=== PATIENT | female | born 1985 | race African-American/Black ===

== ENCOUNTER 2022-10-17 07:28 | Emergency (ER) | payer OTHER ==
[~2022-10-17] VITALS: Ht 152.4 cm; Wt 79.0 kg
[2022-10-17] MEDS ORDERED: METOCLOPRAMIDE HCL 10MG/2ML VIAL IV STA (07:42)
[2022-10-17] MEDS ORDERED: FAMOTIDINE 20MG/2ML VIAL IV STA (07:42)
[2022-10-17] MEDS ORDERED: SODIUM CHLORIDE 0.9% 1,000 ML IV ONE (07:45)
[2022-10-17 08:07] LABS: BASOPHILS % 0.3 % (0.0-2.0); HEMATOCRIT. 29.2 % (36.0-48.0); HEMOGLOBIN. 8.9 g/dL (12.0-16.0); LYMPHOCYTES % 17.5 % (20.0-50.0); MEAN CORPUSCULAR HEMOGLOBIN 20.6 pg (28.0-32.0); MEAN CORPUSCULAR VOLUME 67.4 fL (81.0-99.0); MEAN PLATELET VOLUME 7.5 fl (7.4-10.4); MONOCYTES % 5.2 % (2.0-8.0); PLATELET 439 x1000/uL (130-400); RED BLOOD CELL COUNT 4.33 mill/uL (4.2-5.4); RED CELL DISTRIBUTION WIDTH 18.3 % (11.6-14.6)
[2022-10-17 08:12] LABS: CHLORIDE 108 mEq/L (98-107)
[2022-10-17 08:16] LABS: HCG SCREEN NEGATIVE
[2022-10-17] MEDS: ACETAMINOPHEN 325MG TABLET PO STA ×2 (08:16→08:17)
[2022-10-17 08:18] LABS: INR 0.9; PROTHROMBIN TIME 10.2 sec (9.6-11.0)
[2022-10-17 08:20] LABS: ETHANOL BLOOD < 10 mg/dL
[2022-10-17 08:52] LABS: PLATELET ESTIMATE SLIGHTLY INCREASED
[2022-10-17 09:30] LABS: CLARITY URINE CLOUDY (CLEAR); COLOR URINE YELLOW (YELLOW); KETONES URINE 2+ (NEGATIVE); LEUKOCYTE ESTERASE URINE NEGATIVE (NEGATIVE); NITRITE URINE NEGATIVE (NEGATIVE); OCCULT BLOOD URINE NEGATIVE (NEGATIVE); PH URINE 7.5 (4.5-8.0); PROTEIN URINE NEGATIVE (NEGATIVE); SPECIFIC GRAVITY URINE 1.014 (1.005-1.030)
[2022-10-17 09:57] LABS: *AMPHETAMINES SCREEN URINE NEGATIVE (NEGATIVE); *BARBITURATES SCREEN URINE NEGATIVE (NEGATIVE); *BENZODIAZEPINES SCREEN URINE NEGATIVE (NEGATIVE); *COCAINE SCREEN URINE NEGATIVE (NEGATIVE); METHADONE URINE SCREEN NEGATIVE (NEGATIVE); OPIATES URINE SCREEN NEGATIVE (NEGATIVE); PHENCYCLIDINE URINE SCREEN NEGATIVE (NEGATIVE)
[2022-10-17 10:03] LABS: CANNABINOID URINE SCREEN PRESUMTIVE POSITIVE (NEGATIVE)
[2022-10-17 12:00] VITALS: BP 121/65
== END 2022-10-17 13:30 | disposition home or self-care (01) ==
LOC: ER 07:28
DX: R10.10 Upper abdominal pain, unspecified (principal); Z90.49 Acquired absence of other specified parts of digestive tract
CPT/HCPCS: 36415; 71045; 73110; 73130; 73610; 74176; 76830; 76856; 80053; 80305; 80320; 81003; 83690; 84703; 85025; 85610; 96374; 96375; 99285; C1893; J2765; J3490; J7030; Z7610; G0480

== ENCOUNTER 2023-04-04 14:50 | Emergency (ER) | payer OTHER ==
[~2023-04-04] VITALS: Ht 152.4 cm; Wt 74.0 kg
[2023-04-04 14:56] VITALS: BP 121/86; PULSE 89; RESP 16; TEMP 98.9; O2SAT 100
[2023-04-04 15:41] LABS: BASOPHILS % 0.4 % (0.0-2.0); EOSINOPHILS % 0.5 % (0.0-5.0); HEMATOCRIT. 39.1 % (36.0-48.0); HEMOGLOBIN. 12.7 g/dL (12.0-16.0); MEAN CORPUSCULAR HEMOGLOBIN 26.1 pg (28.0-32.0); MEAN CORPUSCULAR HGB CONC 32.5 g/dL (31.0-37.0); MEAN CORPUSCULAR VOLUME 80.1 fL (81.0-99.0); MEAN PLATELET VOLUME 8.3 fl (7.4-10.4); MONOCYTES % 4.3 % (2.0-8.0); NEUTROPHILS % 72.8 % (40.0-76.0); PLATELET 375 x1000/uL (130-400); RED BLOOD CELL COUNT 4.88 mill/uL (4.2-5.4); RED CELL DISTRIBUTION WIDTH 16.8 % (11.6-14.6); WHITE BLOOD COUNT 9.9 x1000/uL (4.5-11.0)
[2023-04-04 15:46] LABS: CLARITY URINE CLOUDY (CLEAR); COLOR URINE YELLOW (YELLOW); GLUCOSE URINE NEGATIVE (NEGATIVE); KETONES URINE NEGATIVE (NEGATIVE); LEUKOCYTE ESTERASE URINE NEGATIVE (NEGATIVE); NITRITE URINE NEGATIVE (NEGATIVE); OCCULT BLOOD URINE NEGATIVE (NEGATIVE); PROTEIN URINE TRACE (NEGATIVE); SPECIFIC GRAVITY URINE 1.025 (1.005-1.030)
[2023-04-04 15:47] LABS: SQUAMOUS EPITHELIAL CELL URINE 1+ /lpf (RARE/1+); YEAST URINE NONE SEEN
[2023-04-04] MEDS ORDERED: FAMOTIDINE 20MG/2ML VIAL IV NR (16:00)
[2023-04-04] MEDS ORDERED: ONDANSETRON HCL 4MG/2ML INJ IV NR (16:00)
[2023-04-04] MEDS ORDERED: DIATR MEGLU/DIATRIZOATE SOLN 30ML PO NR (16:00)
[2023-04-04 16:02] LABS: BACTERIA URINE 2+; MUCUS URINE 2+ /lpf (< = 2+); RBC URINE 0-2 /hpf (0-2); WBC URINE 0-2 /hpf (0-2)
[2023-04-04 16:09] LABS: CHLORIDE 107 mEq/L (98-107); INDEX HEMOLYSI 1 (1-3); INDEX ICTERIC 1 (1-4); INDEX LIPEMIC 1 (1-3); POTASSIUM 3.9 mEq/L (3.5-5.1); SODIUM 138 mEq/L (136-145)
[2023-04-04 16:17] LABS: ALANINE AMINOTRANSFERASE 15 IU/L (13-61); ALBUMIN 3.4 g/dL (3.4-5.0); ASPARTATE AMINOTRANSFERASE 12 IU/L (15-37); BILIRUBIN TOTAL 0.3 mg/dL (0.1-1.0); CALCIUM 8.9 mg/dL (8.5-10.1); CARBON DIOXIDE 26 mEq/L (21-32); CREATININE 0.7 mg/dL (0.6-1.3); GLUCOSE 92 mg/dL (70-105); PROTEIN TOTAL 7.7 g/dL (6.0-8.3); UREA NITROGEN BLOOD 7 mg/dL (7-21)
[2023-04-04] MEDS: SODIUM CHLORIDE 0.9% 1,000 ML IV SCH ×2 (18:00→18:02)
[2023-04-04] MEDS ORDERED: MORPHINE SULFATE 2 MG/ML CPJ (NOT FOR IM USE) IV ONE (19:00)
[2023-04-04] MEDS ORDERED: IOHEXOL-300 100 ML BOTTLE ONE (19:16)
[2023-04-04] MEDS ORDERED: ACET-2708 MT (21:48)
== END 2023-04-04 21:55 | disposition home or self-care (01) ==
LOC: ER 15:01
DX: R10.816 Epigastric abdominal tenderness (principal); Z90.49 Acquired absence of other specified parts of digestive tract; Z98.890 Other specified postprocedural states; Z88.8 Allergy status to other drugs, medicaments and biological substances
CPT/HCPCS: 80053; 81003; 81025; 83605; 83690; 85025; 86850; 86900; 86901; 36415; 74177; 96361; 96374; 96375; 99285; Q9967; J3490; J2405; J2270; Q9963; Z7610

== ENCOUNTER 2025-04-20 11:59 | Emergency (ER) | payer OTHER ==
[~2025-04-20] VITALS: Ht 167.6 cm; Wt 85.0 kg
[~2025-04-20 11:59] MED LIST: ACET-2708 MT
[2025-04-20 12:07] VITALS: TEMP 36.7; O2SAT 100
[2025-04-20] MEDS ORDERED: LIDO-53 TP (16:26)
[2025-04-20] MEDS ORDERED: ACET-2708 MT (16:26)
[2025-04-20] MEDS: LIDOCAINE 5% PATCH TOP SCH (16:32)
[2025-04-20] MEDS: DEXAMETHASONE 10 MG/ML VIAL IM ONE (16:32)
[2025-04-20 16:50] VITALS: BP 134/85; PULSE 75; RESP 14; O2SAT 100
== END 2025-04-20 16:52 | disposition home or self-care (01) ==
LOC: ER 11:59
DX: M54.50 Low back pain, unspecified (principal); Z98.84 Bariatric surgery status; Z90.49 Acquired absence of other specified parts of digestive tract; Z88.6 Allergy status to analgesic agent; V89.2XXA Person injured in unspecified motor-vehicle accident, traffic, initial encounter; Y93.89 Activity, other specified; Y92.89 Other specified places as the place of occurrence of the external cause; Y99.8 Other external cause status
CPT/HCPCS: 99283; 96372; J1100